=== PATIENT | female | born 1970 | race Caucasian/White ===

== ENCOUNTER 2016-11-25 22:08 | Observation (INO) | payer SELFPAY ==
[~2016-11-25] VITALS: Ht 162.6 cm; Wt 150.6 kg
--- NOTE | ~2016-11-25 | ER ---
PATIENT'S NAME: JEAN MARIE MAY [facility] AGE: 46 Y [address] ROOM: [place] [id number] LOCATION: GPCU ADMIT DATE: 11/25/2016 ER/Outpatient Report DISCHARGE DATE: FAMILY PHYSICIAN: PHYSICIAN, NO ATTENDING PHYSICIAN: TYSHAWN TO Time of Arrival: 2208 hours. Time of Evaluation: 2208 hours. CHIEF COMPLAINT: Overdose. HISTORY OF PRESENT ILLNESS: The patient is a 46-year-old female who presents to the emergency department today with chief complaint of overdose. History is obtained from both paramedics and the patient herself. Apparently at 4:30 this afternoon 6 hours prior to arrival, the patient took approximately 12 of 2.5 mg Ativan. She did tell EMS that she was suicidal and [facility] has determined that she is under EPC custody. She does have a history of depression and has a history of bipolar as well as suicidal attempts in the past. She denies any pain at this time. She is sleepy, but arousable and does answer appropriate for questions. Denies any chest pain. No shortness of breath. No fevers or chills. No nausea or vomiting. No diarrhea or constipation. She does not want to elaborate on why she took the medicine other than some friends of hers reported that she would not attempt to kill herself, but apparently she did. PAST MEDICAL HISTORY: Previous suicide attempts, depression, bipolar, previous inpatient psychiatric admissions, and hypertension. PAST SURGICAL HISTORY: Appendectomy, tubal ligation, cholecystectomy and lumpectomy. SOCIAL HISTORY: The patient denies any tobacco, alcohol, or illicit drug use. ALLERGIES: PENICILLIN. MEDICATIONS: Please see list. PRIMARY CARE DOCTOR: None. PATIENT'S NAME: JEAN MARIE MAY [facility] AGE: 46 Y [address] ROOM: [address] [address] LOCATION: GPCU ADMIT DATE: 11/25/2016 ER/Outpatient Report DISCHARGE DATE: FAMILY PHYSICIAN: PHYSICIAN, ELEONORA ATTENDING PHYSICIAN: TYSHAWN TO PSYCHIATRIST: Anurag Alba MD. REVIEW OF SYSTEMS: All systems are reviewed by myself and negative with the exception of those discussed in HPI and past medical history. PHYSICAL EXAMINATION: VITAL SIGNS: Weight 152 kg, blood pressure 132/76, pulse 67, respiratory rate 14, temperature 98.4 and oxygen saturation 100% on room air. End-tidal CO2 of 38. GENERAL: The patient is a 46-year-old female, obese, in no acute distress, sleepy, but arousable. HEENT: Normocephalic, atraumatic. Pupils are equal, round, and reactive to light. Extraocular motions are Intact. Nares are patent bilaterally. Oropharynx is clear. NECK: Supple. There is no nuchal rigidity. CARDIOVASCULAR: Regular rate and rhythm. No murmurs, rubs, or gallops. LUNGS: Clear to auscultation bilaterally. No wheezes, rales, or rhonchi. ABDOMEN: Soft, nontender, and nondistended. No rebound, rigidity, or guarding. MUSCULOSKELETAL: The patient moves all 4 extremities. SKIN: Warm and dry. There are no rashes or lesions noted. LABORATORY DATA AND X-RAYS: Labs and x-rays are obtained. EKG shows sinus rhythm with the rate of 65, normal axis, normal interval. No ST elevation, ST depression or T-wave inversion. CMP is unremarkable. Alcohol is less than 0.01. Acetaminophen is less than 2. Salicylate is less than 2.8. Serum hCG is less than 1. CBC: White blood cell count 15.5, otherwise normal. Urinalysis and drug screen are currently pending. IMPRESSION: 1. Overdose of Ativan. 2. Suicidal ideation. 3. Initial visit. EMERGENCY DEPARTMENT COURSE: The patient was brought back to the examination room. Seen and evaluated by myself. IV was established. Laboratory analysis and imaging are obtained as described above. The patient was given a liter of normal saline. I have discussed the results with the patient. She was under EPC by Vinod perez PATIENT'S NAME: JEAN MARIE MAY [facility] AGE: 46 Y [address] ROOM: [address] [address] LOCATION: GPCU ADMIT DATE: 11/25/2016 ER/Outpatient Report DISCHARGE DATE: FAMILY PHYSICIAN: PHYSICIAN, NO ATTENDING PHYSICIAN: TYSHAWN TO this time. I have discussed with the patient the results and recommended admission to the hospital. The patient will be admitted. I have discussed the case with Dr. To, the hospitalist service on-call. He does agree to accept the patient for further evaluation, treatment and management. DISPOSITION: The patient is admitted under the care of Dr. To in stable condition. DO SOBIA HER/dahlia /[id number] d: 11/26/160 t: 11/26/16 0522, OUTPATIENT REPORT
--- NOTE | ~2016-11-25 | HP ---
PATIENT'S NAME: JEAN MARIE MAY [facility] AGE: 46 Y [address] ROOM: [place] [address] LOCATION: GPCU ADMIT DATE: 11/25/2016 History & Physical DISCHARGE DATE: FAMILY PHYSICIAN: PHYSICIAN, NO ATTENDING PHYSICIAN: TYSHAWN TO DATE OF SERVICE: CHIEF COMPLAINT: Suicide attempt with Ativan overdose. HISTORY OF PRESENT ILLNESS: This is a 46-year-old female with a long history of major depressive disorder with multiple suicide attempts in the past, and the patient is well- known to [facility]. The story is that the patient has been depressed again and today she decided to end her life by taking 12 tablets of 2.5 mg p.o. Ativan roughly 6 hours ago prior to coming to the emergency room. The patient was sent over here by her daughter, according to the patient. When questioned why the patient wanted to kill herself, the patient could not give me a straight answer. She says that she is just tired of life. The patient is alert and drowsy, but vital signs are within normal limits, and answering questions slowly but appropriately. The patient denies any vomiting or abdominal pain or chest pain or shortness of breath fever or chills or any recent trauma. Currently, the patient is still depressed, still with a suicidal ideation. The patient does not want to give much history given that she states she is feeling depressed. She denies any alcohol or illegal drug or cigarette smoking. No further history could be obtained given that the patient refuses to answer questions. REVIEW OF SYSTEMS: As mentioned in the history of present illness. All other systems reviewed and negative except those mentioned in the history of present illness. PAST MEDICAL HISTORY: 1. Major depressive disorder with multiple suicide attempts in the past according to the chart in [facility] Medical Records. 2. Hypertension. 3. Borderline personality disorder. ALLERGIES: PENICILLIN. THE PATIENT CANNOT RECALL THE REACTION. HOME MEDICATIONS: 1. Lopressor, unknown dose. 2. Latuda, unknown dose. PATIENT'S NAME: JEAN MARIE MAY [facility] AGE: 46 Y [address] ROOM: [place] [address] LOCATION: GPCU ADMIT DATE: 11/25/2016 History & Physical DISCHARGE DATE: FAMILY PHYSICIAN: PHYSICIAN, NO ATTENDING PHYSICIAN: TYSHAWN TO 3. Effexor, unknown dose. The home medication list needs to be reconciled in the morning with the patient's pharmacy. SOCIAL HISTORY: The patient denies any cigarette or alcohol or illegal drug use. PAST SURGICAL HISTORY: 1. Status post appendectomy. 2. Status post cholecystectomy. 3. Status post bilateral tubal ligation. FAMILY HISTORY: The patient could not recall much about her parents' past medical history. PHYSICAL EXAMINATION: VITAL SIGNS: At the time of my dictation, temperature 98, blood pressure 130/80, heart rate 80, respiration 12, and saturation 99% on room air. GENERAL APPEARANCE: Alert and oriented x3. In no acute distress. The patient is sleepy and drowsy, but can still answer questions and is awake. HEENT: Pupils are equally round and reactive to light. Extraocular muscles intact. Anicteric sclerae. Nasal turbinates are normal bilaterally. Moist oral mucosa. NECK: No JVD. No cervical lymphadenopathy. No neck stiffness. CARDIOVASCULAR: Regular rate and rhythm. Normal S1, S2. No murmurs, no rubs, no gallops. RESPIRATORY: Clear. Chest wall nontender to palpation. ABDOMEN: Soft, nontender, nondistended. Normal bowel sounds. No hepatosplenomegaly. EXTREMITIES: No edema in the upper or lower extremities. NEUROLOGIC: Drowsy and sleepy but still answer questions. Grossly nonfocal. SKIN: No ulcer, no rash, no cyanosis. She does have candidal intertrigo below her left breast. MUSCULOSKELETAL: No joint pain, no muscle pain. Range of motion intact. LABORATORY DATA: White blood cells 15.5, hemoglobin 12.6, hematocrit 39.8, MCV 91.5, platelets 152. Glucose 80, BUN 8, creatinine 0.6, sodium 140, potassium 4.2, chloride 107, CO2 of 24, calcium 8.6, total protein 6.9, albumin 2.8, AST 18, ALT 25, alkaline phosphatase 92, total bilirubin 0.2, anion gap 13.2, globulin 4.1, GFR more than 60. Urine drug screen pending. Tylenol level less than 2. Aspirin level less than 2.8. Alcohol level negative. Urinary test negative. PATIENT'S NAME: JEAN MARIE MAY [facility] AGE: 46 Y [address] ROOM: [address] [place], [place] [address] [facility] ADMIT DATE: 11/25/2016 History & Physical DISCHARGE DATE: FAMILY PHYSICIAN: PHYSICIAN, NO ATTENDING PHYSICIAN: TYSHAWN TO IMAGING STUDY: EKG on admission on November 25, 2016, at 2221 hours shows sinus rhythm, heart rate of 65 with a W[place] 158, QRS 96, QTc of 397. No acute ischemic changes. ASSESSMENT AND PLAN: 1. Regarding her suicidal attempt with Ativan overdose: Suicidal precaution. One-on-one sitter in the room at all times. Psychiatry consult in the morning. Poison Control has already been contacted for benzodiazepine overdose and the treatment would be supportive care. Therefore, IV fluids with D5 normal saline at 100 mL/h. Chang catheter placement. Urinalysis and urine drug screen. Check labs in the morning. Check EKG in the morning to monitor for QTc and QRS in case the patient has ingested any other medication that was not mentioned by the patient. ETCO2 monitor at all times. Oxygen on nasal cannula to keep the saturation more than 94%. Vital signs check every hour. Fall precaution and aspiration precaution and suicidal precaution. N.p.o. if drowsy. Can have a cardiac diet if she is eating and awake. Further plan depends on clinical course. 2. I will avoid flumazenil given the patient is a chronic benzodiazepine user and giving flumazenil in the setting of acute overdose can contribute Ativan withdrawal seizure. 3. Regarding her major depressive disorder: Consult Psychiatry in the morning. 4. Regarding her hypertension: Home medication needs to be addressed in the morning. Currently, the patient does not remember the dose. It will be readdressed in the morning with the patient's pharmacy. Blood pressure currently is under good control and does not require any medication. 5. Deep vein thrombosis prophylaxis: Lovenox subcu 40 mg daily. Time spent on the day of admission 35 minutes including chart review, interviewing the patient, addressing all the questions and concerns the patient had, examining the patient, and went over the plan of care in detail with the nurses and with the patient. Further plan of care will be decided by the hospitalist taking over the care at 8 AM on 11/26/16. Patient is in agreement with the current plan of care. MD ERASTO FAITH/modl /[id number] D: [id number] T: [id number] HISTORY & PHYSICAL
--- NOTE | ~2016-11-25 | DS ---
PATIENT'S NAME: JEAN MARIE MAY [facility] AGE: 46 Y [address] ROOM: [place] [address] LOCATION: GPCU ADMIT DATE: 11/25/2016 Discharge Summary DISCHARGE DATE: 11/26/2016 FAMILY PHYSICIAN: PHYSICIAN, ELEONORA ATTENDING PHYSICIAN: Servando Barlow PRINCIPAL DIAGNOSES: 1. Drug overdose, Ativan 30 mg. 2. Suicide attempt. 3. History of bipolar disorder. 4. History of multiple suicide attempts in the past. HOSPITAL COURSE: A 46-year-old lady was brought in by police after she tried to commit suicide by taking a total of 30 mg of Ativan. She was admitted to the hospital for monitoring. Initial study including a CAT scan was done, which was unremarkable and a chest x-ray was unremarkable. Interestingly, her UDS was negative for any benzodiazepine. Lab work was done, which did show some leukocytosis, but no evidence of any infection anywhere including urine or lungs. She remained afebrile and hemodynamics were normal. DISCHARGE PLANNING: To send the patient to [facility]. Psych consult was obtained, and her Effexor dose was reduced. She will be sent to the [facility] under EPC. DISCHARGE MEDICATIONS: 1. Latuda 60 mg p.o. every morning. 2. Propranolol 10 mg p.o. twice daily. 3. Topamax 50 mg p.o. twice daily. 4. Venlafaxine 300 mg p.o. once daily. 5. Ativan 0.5 mg p.o. every night at bedtime. 6. Naproxen 440 mg p.o. every 12 hours p.r.n. 7. Oxymetazoline 1 spray per nose every 12 hours for congestion. ACTIVITY: As tolerated. DIET: Regular diet. HEMODYNAMICS ON DISCHARGE: Stable. She will be transferred to the [facility] under protective services. CRYSTAL CHARLTON MD PATIENT'S NAME: JEAN MARIE MAY [facility] AGE: 46 Y [address] ROOM: [place] [address] LOCATION: GPCU ADMIT DATE: 11/25/2016 Discharge Summary DISCHARGE DATE: 11/26/2016 FAMILY PHYSICIAN: ELEONORA KIRAN ATTENDING PHYSICIAN: Servando Barlow/dahlia /[id number] d: 11/27/16 0314 t: 12/01/16 1507, DISCHARGE SUMMARY
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
[~2016-11-25 22:08] MED LIST: AMBIEN5 MG PO; EFFEXOR XR150 MG PO; EFFEXOR XR75 MG PO; HUMIBID LA (MU600 MG PO; INDERAL10 MG PO; LATUDA20 MG; LATUDA60 MG PO; RESTORIL30 MG PO; TOPAMAX50 MG PO; VENLAFAXINE H37.5 MG; VENLAFAXINE HC225 MG PO; Z-PAK250 MG PO
[2016-11-25 22:40] LABS: BASOPHIL % 0.2 %; EOSINOPHIL # 0.1 K/uL (0.0-0.5); EOSINOPHIL % 0.6 %; HEMATOCRIT 39.8 % (33.0-46.0); HEMOGLOBIN 12.6 g/dL (10.0-15.0); IMMATURE GRANULOCYTE # 0.1 K/uL (0.0-0.3); IMMATURE GRANULOCYTE % 0.5 %; LYMPHOCYTE # 3.3 K/uL (0.8-4.0); LYMPHOCYTE % 21.4 %; MCHC 31.7 gm/dL (32.0-36.5); MCV 91.5 fl (83.0-98.0); MONOCYTE % 6.3 %; NRBC % 0 /100WBC (0-0.00); RBC 4.35 M/uL (3.50-5.50); WBC 15.5 K/uL (4.0-11.0)
[2016-11-25 22:59] LABS: ALBUMIN 2.8 gm/dL (3.5-5.0); ALK PHOS 92 IU/L (33-138); ALT 25 IU/L (12-78); BLOOD UREA NITROGEN 8 mg/dL (6-24); CALCIUM 8.6 mg/dL (8.5-10.5); CHLORIDE 107 mMol/L (96-110); CO2 24 mMol/L (22-32); CREATININE 0.6 mg/dL (0.5-1.1); ESTIMATED GFR (MDRD EQUATION) > 60; SODIUM 140 mMol/L (135-145); TOTAL BILIRUBIN 0.2 mg/dL (0.0-1.5); TOTAL PROTEIN 6.9 g/dL (6.0-8.4)
[2016-11-25 23:11] LABS: PLATELET COUNT 152 K/uL (150-450)
[2016-11-25 23:14] LABS: ANION GAP 13.2 (10.0-19.0); AST 18 IU/L (10-40); POTASSIUM 4.2 mMol/L (3.7-5.1)
[2016-11-26 01:07] LABS: AMPHETAMINE NEGATIVE (NEGATIVE); BARBITURATE NEGATIVE (NEGATIVE); COCAINE NEGATIVE (NEGATIVE); OPIATES NEGATIVE (NEGATIVE)
[2016-11-26 01:59] LABS: BILIRUBIN URINE NEGATIVE (NEGATIVE); BLOOD URINE NEGATIVE /UL (NEGATIVE); COLOR URINE YELLOW (YELLOW); GLUCOSE URINE NEGATIVE (NEGATIVE); KETONE URINE NEGATIVE (NEGATIVE); LEUKOCYTES URINE NEGATIVE /UL (NEGATIVE); NITRITE URINE NEGATIVE (NEGATIVE); PH URINE 6.5 (4.0-8.0); PROTEIN URINE NEGATIVE (NEGATIVE); TURBIDITY URINE CLEAR (CLEAR); UROBILINOGEN URINE NORMAL (NORMAL)
--- NOTE | 2016-11-26 02:22 | NUR ---
Patient arrived to PCU at midnight. Family had found her in her apartment last evening after she took 12 Ativan around 1630. Patient states she is depressed. Very drowsy, disoriented to place but able to answer simple questions and follow commands. Calm/cooperative. Speech is slurred. 1:1 supervision for suicide precautions. Patient is EPC with paperwork on chart.
--- NOTE | 2016-11-26 05:44 | NUR ---
Significant Event: Patient now oriented x3, remains very drowsy and slow/slurred speech, opens eyes to sound, VSS, continuous end tidal monitoring, D5NS @100 ml/hr, fitzpatrick placed with good output, patient states she is depressed and continues to have suicidal ideations, 1:1 supervision Follow up: psych c/s today
[2016-11-26 08:28] LABS: HEMATOCRIT 39.4 % (33.0-46.0); HEMOGLOBIN 12.6 g/dL (10.0-15.0); MCH 29.1 pg (27.0-34.0); MPV 11.7 fl (9.4-12.4); RBC 4.33 M/uL (3.50-5.50)
[2016-11-26 08:29] LABS: WBC 16.5 K/uL (4.0-11.0)
[2016-11-26 08:38] LABS: ANION GAP 9.8 (10.0-19.0); BLOOD UREA NITROGEN 5 mg/dL (6-24); CALCIUM 8.1 mg/dL (8.5-10.5); CHLORIDE 108 mMol/L (96-110); CO2 25 mMol/L (22-32); CREATININE 0.6 mg/dL (0.5-1.1); ESTIMATED GFR (MDRD EQUATION) > 60; POTASSIUM 3.8 mMol/L (3.7-5.1); SODIUM 139 mMol/L (135-145)
[2016-11-26] MEDS ORDERED: ALEVE220 MG PO (09:39)
[2016-11-26] MEDS ORDERED: ATIVAN 0.5MG0.5 MG PO (09:39)
[2016-11-26] MEDS ORDERED: AFRIN) (GENASAL15 ML NOSE (09:40)
--- NOTE | 2016-11-26 11:39 | NUR ---
Reviewed Christine's chart and I did see EPC paperwork on file. BROWN will need to be notified when she is ready to dismiss. [phone] is the phone number to call. She will go to [facility] for her psych needs upon dismissal. Tried to call over to [facility] to talk with Sammi, but per the hotel front desk agent, she was in an assessment so she was unable to take my call. Will try her back at a later time.
--- NOTE | 2016-11-26 15:30 | NUR ---
Patient alert and oriented, droswy at beginning of shift has became more agitated and uncooperative throughout shift. Vital signs stable on room air. IV discontinued. Chang catheter discontinued, patient has voided since removal. Patient having loose stools, stool sample sent to lab. Patient EPC'd. Andre norris called on patient during shift.
--- NOTE | 2016-11-26 17:41 | NUR ---
PATIENT TRANSFERED TO [facility] AT 1608. VITAL SIGNS STABLE ON ROOM AIR. BRA LEFT IN WHEELCHAIR AT TIME OF DISMISSAL, LAB IS GOING TO TAKE TO [facility] IN THE MORNING (11/27/16) WITH AM LAB DRAWS, [facility] AND LAB AWARE. TRANSFER PACKET FAXED TO [facility].
[2016-12-03] MEDS ORDERED: BIAXIN250 MG PO (08:56)
[2016-12-03] MEDS ORDERED: REMERON15 MG PO (08:57)
[2016-12-03] MEDS ORDERED: VISTARIL50 MG PO (08:58)
[2017-02-17] MEDS ORDERED: LATUDA60 MG PO (10:59)
[2017-02-17] MEDS ORDERED: EFFEXOR XR150 MG PO (11:05)
[2017-02-17] MEDS ORDERED: BELSOMRA15 MG PO (11:08)
== END 2016-11-26 15:00 ==
LOC: GMED 22:08 → GPCU 23:40
PROVIDERS: Emergency Medicine; ADMIT Internal Medicine
DX: T42.4X2A Poisoning by benzodiazepines, intentional self-harm, initial encounter (principal); T14.91 Suicide attempt; F31.9 Bipolar disorder, unspecified; F33.8 Other recurrent depressive disorders; G43.909 Migraine, unspecified, not intractable, without status migrainosus; I10 Essential (primary) hypertension; E66.9 Obesity, unspecified; Z91.5 Personal history of self-harm; Z88.0 Allergy status to penicillin; Z90.49 Acquired absence of other specified parts of digestive tract; Z98.51 Tubal ligation status
CPT/HCPCS: G0378; G0480; J1650; J7042; J7120

== ENCOUNTER 2017-02-11 19:06 | Observation (INO) | payer SELFPAY ==
[~2017-02-11] VITALS: Ht 162.6 cm; Wt 148.5 kg
--- NOTE | ~2017-02-11 | ER ---
PATIENT'S NAME: JEAN MARIE MAY [facility] AGE: 46 Y [address] ROOM: [place] [id number] LOCATION: [facility] ADMIT DATE: 02/11/2017 ER/Outpatient Report DISCHARGE DATE: FAMILY PHYSICIAN: PHYSICIAN, NO ATTENDING PHYSICIAN: LUIS CARLOS SIMMONS V Time of Arrival: 1905 hours. Time of Exam: 1915 hours. CHIEF COMPLAINT: Overdose. HISTORY OF PRESENT ILLNESS: The patient arrived per EMS with IV in place. Per paramedics, the patient took 30 clonazepam 1 mg tablets and 30 lorazepam 0.5 mg tablets at about 6 o'clock tonight. She states that she was tired of her daughter belittling her and telling her that she is a terrible mother. States that initially she drove out of the country to take the pills, so that she would be found, and then it was too hot, so she came home, and a friend became aware that she had taken the pills, and called for help. [place] [employer] was here in the department. ALLERGIES: PENICILLIN. CURRENT MEDICATIONS: On her chart and reviewed by me. PAST MEDICAL HISTORY: Multiple suicide attempts, hypertension, depression, and bipolar. PAST SURGICAL HISTORY: Appendectomy, cholecystectomy, cervical ablation, and breast lumpectomy. SOCIAL HISTORY: She denies the use of drugs, tobacco, or alcohol. She states that Dr. Alba is her psychiatrist and she does not have a primary medical provider. REVIEW OF SYSTEMS: All negative other than those mentioned in the HPI. PHYSICAL EXAMINATION: VITAL SIGNS: She weighed 145.9 kg, blood pressure is 131/76, pulse of 81, respirations 16, temperature of 98.9, O2 saturation is 98% on room air. Trupti Coma Scale is 15. PATIENT'S NAME: JEAN MARIE MAY [facility] AGE: 46 Y [address] ROOM: [address] [address] LOCATION: [facility] ADMIT DATE: 02/11/2017 ER/Outpatient Report DISCHARGE DATE: FAMILY PHYSICIAN: PHYSICIAN, NO ATTENDING PHYSICIAN: LUIS CARLOS SIMMONS V VITAL SIGNS: She is awake, but lethargic. She answers questions slowly but appropriately. Responds to verbal stimuli. RESPIRATIONS: Even and nonlabored. She is oriented x4. Pupils are equal and reactive to light. Extraocular movement is intact. LUNG: Sounds are clear throughout. HEART: Regular rate and rhythm. ABDOMEN: Soft, nondistended. Bowel sounds are present. She is incontinent of urine. PSYCHIATRIC: Has a depressed flat affect and unkempt appearance. LABORATORY DATA: Poison Control was contacted. They recommended that since the patient takes a med on a regular basis, not to give her the Romazicon or to do charcoal as she is too sleepy. IV fluids were recommended along with lab and EKG. Saline lock was initiated by the Paramedics. Normal saline fluids were started at a wide-open rate. EKG shows a sinus rhythm, unchanged from her previous EKGs. CBC is within normal limits. Chem panel is within normal limits. Alcohol is negative. Acetaminophen is negative. Salicylates are negative. Serum is negative. Cath UA was obtained. Does show 25 leukocytes, but rare bacteria. Urine drug screen is negative; negative for amphetamines, barbiturates, benzodiazepines, cocaine, opiates, PCP, and cannabinoids. The patient rested comfortably on the cart. Her vital signs remained stable. Her O2 saturation remained 95% or greater on room air. Her end-tidal CO2 has been 31 to 34. She has been in a sinus rhythm. Dr. Simmons was consulted regarding the patient. He did come and evaluate the patient. He asked that we repeat cath UA for urine drug screen. It comes back negative for all listed above. IMPRESSION: Suicide attempt. PLAN: We will admit the patient for observation per the hospitalist, Dr. Simmons. [place] [employer] did report that the patient to be EPC'd on dismissal. FREDRICK WOLFE APRN FOR MD KOKI MENDOZA/dahlia /[id number] d: 02/12/17 0240 t: 02/17/17 1553, OUTPATIENT REPORT
--- NOTE | ~2017-02-11 | HP ---
PATIENT'S NAME: JEAN MARIE MAY [facility] AGE: 46 Y [address] ROOM: [place] [address] [place] [facility] [place]: 02[place]11/2017 History & Physical DISCHARGE DATE: FAMILY PHYSICIAN: PHYSICIAN, NO ATTENDING PHYSICIAN: LUIS CARLOS SIMMONS V DATE OF SERVICE: CHIEF COMPLAINT: Overdose. HISTORY OF PRESENT ILLNESS: This is obtained entirely from the ER personnel and [facility]. The patient is a 46-year-old female with past medical history of depression and prior suicide attempts. The events that were conveyed to me is that at some point this afternoon the patient took 30 tablets of lorazepam, unknown dosage, as well as 30 tablets of clonazepam. Apparently, she [place] the country to be away from people. Subsequently, it became really hard to handle her car, she returned to her residence and informed somebody of her actions. She was taken to the ER. In the ER, the patient was found to be hemodynamically stable, but quite sleepy, but arousable. Interestingly enough, her urine tox is entirely negative. Of note, the patient has had a nearly identical episode approximately 3 months ago, at which point, her urine tox was negative as well. At this point, the patient is quite lethargic, but arousable and quite responsive to painful stimuli. She volunteers no specific complaints. REVIEW OF SYSTEMS: All systems have been reviewed and negative except for pertinent positives mentioned above. PAST MEDICAL HISTORY: As retrieved from our records are: 1. Depression. 2. Prior suicide attempts. 3. Essential hypertension. CURRENT MEDICATIONS: Unknown. SOCIAL HISTORY: Cannot be obtained due to her encephalopathy. PATIENT'S NAME: JEAN MARIE MAY [facility] AGE: 46 Y [address] ROOM: [address] [address] [place] [facility] [place]: 02/11/2017 History & Physical DISCHARGE DATE: FAMILY PHYSICIAN: PHYSICIAN, NO ATTENDING PHYSICIAN: LUIS CARLOS SIMMONS V FAMILY HISTORY: Cannot be obtained due to encephalopathy. Full list of medications is currently being. PHYSICAL EXAMINATION: VITAL SIGNS: Blood pressure is 120/66, heart rate is 66, saturating 98% on room air, afebrile, respirations are 10. GENERAL: Morbidly obese, middle-aged female, quite sedated, but in no acute distress. She is arousable to voice commands. NEUROLOGICAL: Nonfocal. EYES: Show pupils are 3 mm and reactive to light. LYMPHATIC: Shows no cervical lymphadenopathy. ENDOCRINE: Shows no thyromegaly. LUNGS: Clear to auscultation. HEART: Rate is regular. No appreciable murmurs, gallops, or rubs. GI: Abdomen soft, nontender. : No costovertebral angle tenderness. VASCULAR: 2+ pedal pulses. MUSCULOSKELETAL: No muscle or joint abnormalities. Skin: Warm and dry. PSYCHIATRIC: Cannot be fully assessed due to her altered mental status. LABORATORY DATA: Review of lab studies in the ER is quite unremarkable. ASSESSMENT AND PLAN: This is a 46-year-old female, who will be admitted for: 1. Presumed encephalopathy due to benzodiazepine overdose. The patient will be admitted to the hospital for observation. 2. Benzodiazepine overdose, intentional. The Poison Control Center did not recommend any reversal or activated charcoal as the patient is chronically on these medications. At this point, she is not showing any significant toxicities. Given her negative urine tox today as well as on the prior admission, one has to wonder if the patient has actually ingested these substances. We will repeat a urine tox now as it is conceivable that her prior urine tox may have been too early to demonstrate her ingestion. 3. Suicide attempt. The patient will be placed on one-to-one, and we will request a Carlos Young transfer in 24 to 48 hours. 4. Additional management will depend on clinical course. Time dedicated to the patient's encounter is 25 minutes. PATIENT'S NAME: JEAN MARIE MAY [facility] AGE: 46 Y [address] ROOM: [address] [address] [place] [facility] [place]: 02/11/2017 History & Physical DISCHARGE DATE: FAMILY PHYSICIAN: PHYSICIAN, NO ATTENDING PHYSICIAN: LUIS CARLOS SIMMONS V MD BRODERICK GUALLPA/dahlia /[id number] D: [id number] T: [id number] HISTORY & PHYSICAL
[~2017-02-11 19:06] MED LIST changes: -BELSOMRA15 MG PO; -KLONOPIN1 MG PO
[2017-02-11 19:28] LABS: BASOPHIL % 0.3 %; EOSINOPHIL # 0.1 K/uL (0.0-0.5); EOSINOPHIL % 0.5 %; HEMATOCRIT 42.5 % (33.0-46.0); HEMOGLOBIN 13.8 g/dL (10.0-15.0); IMMATURE GRANULOCYTE % 0.4 %; LYMPHOCYTE # 3.8 K/uL (0.8-4.0); LYMPHOCYTE % 36.9 %; MCH 29.9 pg (27.0-34.0); MCHC 32.5 gm/dL (32.0-36.5); MCV 92.2 fl (83.0-98.0); MONOCYTE # 0.8 K/uL (0.0-1.0); MONOCYTE % 7.3 %; MPV 11.7 fl (9.4-12.4); NEUTROPHIL # (ANC) 5.7 K/uL (1.8-7.8); NEUTROPHIL % 54.6 %; NRBC % 0 /100WBC (0-0.00); PLATELET COUNT 289 K/uL (150-450); RBC 4.61 M/uL (3.50-5.50); RDW-CV 13.6 % (11.9-14.6); WBC 10.4 K/uL (4.0-11.0)
[2017-02-11 19:45] LABS: BILIRUBIN URINE NEGATIVE (NEGATIVE); BLOOD URINE NEGATIVE /UL (NEGATIVE); COLOR URINE YELLOW (YELLOW); GLUCOSE URINE NEGATIVE (NEGATIVE); KETONE URINE NEGATIVE (NEGATIVE); LEUKOCYTES URINE 25 /UL (NEGATIVE); NITRITE URINE NEGATIVE (NEGATIVE); PROTEIN URINE NEGATIVE (NEGATIVE); SPEC GRAVITY URINE 1.015 (1.003-1.035); TURBIDITY URINE CLEAR (CLEAR); UROBILINOGEN URINE NORMAL (NORMAL)
[2017-02-11 19:53] LABS: ALBUMIN 3.2 gm/dL (3.5-5.0); ALK PHOS 91 IU/L (33-138); ALT 21 IU/L (12-78); ANION GAP 10.6 (10.0-19.0); AST 17 IU/L (10-40); BLOOD UREA NITROGEN 9 mg/dL (6-24); CALCIUM 8.5 mg/dL (8.5-10.5); CHLORIDE 110 mMol/L (96-110); CO2 23 mMol/L (22-32); CREATININE 0.9 mg/dL (0.5-1.1); ESTIMATED GFR (MDRD EQUATION) > 60; POTASSIUM 3.6 mMol/L (3.7-5.1); SODIUM 140 mMol/L (135-145); TOTAL BILIRUBIN 0.2 mg/dL (0.0-1.5); TOTAL PROTEIN 7.9 g/dL (6.0-8.4)
[2017-02-11 19:56] LABS: BACTERIA URINE RARE (NEGATIVE); RBC URINE NEGATIVE #/HPF (NEGATIVE)
[2017-02-11 19:57] LABS: AMORPHOUS URINE 1+ (NEGATIVE); WBC CLUMPS URINE FEW (NEGATIVE)
[2017-02-11 20:05] LABS: BARBITURATE NEGATIVE (NEGATIVE); COCAINE NEGATIVE (NEGATIVE); OPIATES NEGATIVE (NEGATIVE)
[2017-02-11 20:07] LABS: AMPHETAMINE NEGATIVE (NEGATIVE)
[2017-02-11 22:24] LABS: BARBITURATE NEGATIVE (NEGATIVE); COCAINE NEGATIVE (NEGATIVE); OPIATES NEGATIVE (NEGATIVE)
[2017-02-11 22:27] LABS: AMPHETAMINE NEGATIVE (NEGATIVE)
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
[2017-02-12] MEDS ORDERED: KLONOPIN1 MG PO (04:13)
[2017-02-12] MEDS ORDERED: ATIVAN 0.5MG0.5 MG PO (04:14)
--- NOTE | 2017-02-12 04:46 | NUR ---
Significant Event: PT VERY SEDATED AT ADMISSION. UNABLE TO OBTAIN PART 1 ACCURATELY. HAVE NOT SEEN PT AMBULATE. IVF RUNNING TO R WRIST. REMAINS 1:1 OBSERVATION. WILL HAVE PSYCH CONSULT THIS AM. VSS, RA, AFEBRILE. PT REPORTED [facility] WAS PHARMACY, OBTAINED MED LIST FROM THEM AND PLACED ON CHART. Follow up: CONTINUE TO MONITOR
--- NOTE | 2017-02-12 11:12 | NUR ---
1154 Phone call from Deisy at [facility] stating Dr. Bennett has agreed to accept patient either as a voluntary transfer or as EPC. I explained to Deisy that [facility] is intending to EPC her per paperwork and verbal communication with them when patient came in last night. Notified Dr. Johnson that [facility] has accepted patient. Dr. Johnson states patient is medically cleared for discharge. Provided the patient's nurse Lashell with the number for nurse to nurse [phone]. As soon as charge nurse has discharge orders complete and nurse to nurse has been done, I will call D and have them come and get patient/reassess her for EPC status.
--- NOTE | 2017-02-12 12:06 | NUR ---
Pt alert, follows commands. She is sleepy, opens eyes, poor eye contact. Pt speech slow and soft. Daughter here with pt and talking to patient about going to [facility]. Pt ate breakfast slowly earlier. Takes po fluids and up to B[facility] and voided earlier. Denies pain. Pt IV removed. VSS. Pt has blotchy face. Pt eyes red. Pt earlier reviewed events last night of taking medications, driving out to country and getting too hot so went back home. Pt says "I wanted to go to sleep". Pt telemetry removed.
--- NOTE | 2017-02-12 13:28 | NUR ---
(+) MST BUT NOT AT RISK. WT IS DOWN ONLY 1% FROM November ADMISSION. PT WOULD BENEFIT FROM WT LOSS BMI IN MORBIDLY OBESE RANGE. WILL ASSIST NEEDED.
[2017-02-17] MEDS ORDERED: LATUDA60 MG PO (10:59)
[2017-02-17] MEDS ORDERED: EFFEXOR XR150 MG PO (11:05)
[2017-02-17] MEDS ORDERED: BELSOMRA15 MG PO (11:08)
== END 2017-02-12 12:30 ==
LOC: GMED 19:06 → GMSU 20:29
PROVIDERS: Nurse Practitioner Family; ADMIT Internal Medicine
DX: T42.4X2A Poisoning by benzodiazepines, intentional self-harm, initial encounter (principal); G92 Toxic encephalopathy; F32.9 Major depressive disorder, single episode, unspecified; I10 Essential (primary) hypertension; T14.91 Suicide attempt; Z90.49 Acquired absence of other specified parts of digestive tract; Z98.890 Other specified postprocedural states; Z88.0 Allergy status to penicillin
CPT/HCPCS: G0378; G0480; J7030

== ENCOUNTER → 2017-02-11 | Outpatient (CLI) | payer SELFPAY ==
[~2017-02-11] MED LIST changes: +AFRIN) (GENASAL15 ML NOSE; +ALEVE220 MG PO; +ATIVAN 0.5MG0.5 MG PO; +BELSOMRA15 MG PO; +BIAXIN250 MG PO; +KLONOPIN1 MG PO; +REMERON15 MG PO; +VISTARIL50 MG PO
== END | disposition disaster alternative care site (69) ==
LOC: GAMB 18:50
DX: T14.91 Suicide attempt (principal); F32.9 Major depressive disorder, single episode, unspecified; R45.851 Suicidal ideations; Z79.899 Other long term (current) drug therapy; Z86.59 Personal history of other mental and behavioral disorders; Z88.0 Allergy status to penicillin
CPT/HCPCS: A0425; A0427